=== PATIENT | male | born 1980 | race Caucasian/White ===

== ENCOUNTER 2017-09-25 16:22 | Emergency (ER) | payer SELFPAY ==
[~2017-09-25] VITALS: Ht 193 cm; Wt 93.0 kg
--- NOTE | 2017-09-25 17:15 | EKG ---
[address] [address] Test Date: 2017-09-25 Test Time: 17:12:06 Pat Name: MANAN BURCH Department: Room: Gender: M Vp Security: : 1980 Requested By: RENEE SMITH Order Number: [id number] Reading MD: Measurements Intervals [place] Rate: 84 P: 40 WA: 128 QRS: -8 QRSD: 88 T: 21 QT: 374 QTc: 445 Interpretive Statements SINUS RHYTHM LEFTWARD AXIS NO SPECIFIC ECG ABNORMALITIES RI6.01 No previous ECG available for comparison
[2017-09-25 17:29] LABS: BASO % 0 % (0-3); EOS # 0.2 x10^3/uL (0.0-0.7); EOS % 4 % (0-3); HEMATOCRIT 39.5 % (39.0-53.0); HEMOGLOBIN 13.7 g/dL (13.0-17.5); LYMPH % 25 % (24-48); MEAN CORPUSCULAR HEMOGLOBIN 33 pg (25-35); MEAN CORPUSCULAR HGB CONC 35 g/dL (31-37); MEAN CORPUSCULAR VOLUME 95 fL (79-100); MONO # 0.7 x10^3/uL (0.0-1.1); MONO % 17 % (0-9); NEUT # 2.2 x10^3uL (1.8-7.7); NEUT % 54 % (31-73); PLATELET COUNT 172 x10^3/uL (140-400); RED BLOOD COUNT 4.16 x10^6/uL (4.30-5.70); RED CELL DISTRIBUTION WIDTH 12.6 % (11.5-14.5); WHITE BLOOD COUNT 4.2 x10^3/uL (4.0-11.0)
[2017-09-25] MEDS ORDERED: IV NORMAL SALINE 1,000ML 1,000 ML IV ONE (17:45)
[2017-09-25 17:50] LABS: ALBUMIN 3.8 g/dL (3.4-5.0); ALBUMIN/GLOBULIN RATIO 0.9 (1.0-1.7); ALK PHOS 49 U/L (46-116); ALT (SGPT) 24 U/L (16-63); ANION GAP 11 (6-14); AST (SGOT) 18 U/L (15-37); BLOOD UREA NITROGEN 15 mg/dL (8-26); BUN/CREATININE RATIO 14 (6-20); CALCIUM 8.8 mg/dL (8.5-10.1); CARBON DIOXIDE 28 mmol/L (21-32); CHLORIDE 102 mmol/L (98-107); CREATININE 1.1 mg/dL (0.7-1.3); GFR 74.5; GLUCOSE 90 mg/dL (70-99); LIPASE 133 U/L (73-393); MAGNESIUM 2.1 mg/dL (1.8-2.4); POTASSIUM 3.6 mmol/L (3.5-5.1); SODIUM 141 mmol/L (136-145); TOTAL BILIRUBIN 0.3 mg/dL (0.2-1.0); TOTAL PROTEIN 8.1 g/dL (6.4-8.2)
[2017-09-25 18:00] VITALS: BP 140/80
[2017-09-25] MEDS ORDERED: IPRATRPIUM/ALBUTEROL 0.5/2.5MG 3 ML NEBU. NEB ONE (18:00)
[2017-09-25] MEDS ORDERED: KETOROLAC 30 MG/ML VIAL. IV ONE (18:00)
[2017-09-25] MEDS ORDERED: BENZONATATE 100 MG CAPSULE. PO ONE (18:00)
--- NOTE | 2017-09-25 18:01 | PHYS DOC ---
Past History Past Medical History: Other Additional Past Medical Histor: history of pericarditis Smoking: Non-smoker Adult General Chief Complaint Chief Complaint: COUGH HPI HPI 37-year-old male patient complaining of cough and congestion and sore throat for several days that started 2 weeks ago and improved spontaneously. Patient complaining of another course of dry cough , nasal congestion, myalgia, sore throat and earache that started 3 days ago and associated with shortness of breath and chest pain in bilateral chest during episodes of cough with radiation to his left shoulder. Patient states he had temperature up to 100 the last 3 days. Patient denies sick contact. Patient states he had the same symptom several years ago with diagnosis of pericarditis. Review of Systems Review of Systems Constitutional: Reports fever and chills Eyes: Denies change in visual acuity, redness, or eye pain [] HENT: Post nasal congestion and sore throat Respiratory: Reports cough and shortness of breath Cardiovascular: No additional information not addressed in HPI [] GI: Denies abdominal pain, nausea, vomiting, bloody stools or diarrhea [] : Denies dysuria or hematuria [] Musculoskeletal: Denies back pain or joint pain [] Integument: Denies rash or skin lesions [] Neurologic: Denies headache, focal weakness or sensory changes [] Endocrine: Denies polyuria or polydipsia [] All other systems were reviewed and found to be within normal limits, except as documented in this note. Current Medications Current Medications Current Medications Medications (Trade) Dose Ordered Sig/Chen Start Time Stop Time Status Last Admin Dose Admin Albuterol/ Ipratropium (Duoneb) 3 ml 1X ONCE 09/25/17 18:00 09/25/17 18:01 09/25/17 17:57 3 ML Benzonatate (Tessalon Perle) 100 mg 1X ONCE 09/25/17 18:00 09/25/17 18:01 Ketorolac Tromethamine (Toradol) 30 mg 1X ONCE 09/25/17 18:00 09/25/17 18:01 Sodium Chloride 1,000 ml @ 1,000 mls/hr 1X ONCE 09/25/17 17:45 09/25/17 18:44 Allergies Allergies Allergies Coded Allergies Type Severity Reaction Last Updated Verified No Known Drug Allergies 09/25/17 No Physical Exam Physical Exam Constitutional: Well developed, well nourished, mild distress, non-toxic appearance. [] HENT: Normocephalic, atraumatic, bilateral external ears normal, oropharynx moist, pharyngeal erythema, no oral exudates, nose normal. [] Eyes: PERRLA, EOMI, conjunctiva normal, no discharge. [] Neck: Normal range of motion, no tenderness, supple, no stridor. [] Cardiovascular:Heart rate regular rhythm, no murmur [] Lungs & Thorax: Bilateral breath sounds clear to auscultation [] Abdomen: Bowel sounds normal, soft, no tenderness, no masses, no pulsatile masses. [] Skin: Warm, dry, no erythema, no rash. [] Back: No tenderness, no CVA tenderness. [] Extremities: No tenderness, no cyanosis, no clubbing, ROM intact, no edema. [] Neurologic: Alert and oriented X 3, normal motor function, normal sensory function, no focal deficits noted. [] Psychologic: Affect normal, judgement normal, mood normal. [] Current Patient Data Lab Results Laboratory Tests Test 09/25/17 17:00 White Blood Count 4.2 x10^3/uL (4.0-11.0) Red Blood Count 4.16 x10^6/uL (4.30-5.70) L Hemoglobin 13.7 g/dL (13.0-17.5) Hematocrit 39.5 % (39.0-53.0) Mean Corpuscular Volume 95 fL (79-100) Mean Corpuscular Hemoglobin 33 pg (25-35) Mean Corpuscular Hemoglobin Concent 35 g/dL (31-37) Red Cell Distribution Width 12.6 % (11.5-14.5) Platelet Count 172 x10^3/uL (140-400) Neutrophils (%) (Auto) 54 % (31-73) Lymphocytes (%) (Auto) 25 % (24-48) Monocytes (%) (Auto) 17 % (0-9) H Eosinophils (%) (Auto) 4 % (0-3) H Basophils (%) (Auto) 0 % (0-3) Neutrophils # (Auto) 2.2 x10^3uL (1.8-7.7) Lymphocytes # (Auto) 1.0 x10^3/uL (1.0-4.8) Monocytes # (Auto) 0.7 x10^3/uL (0.0-1.1) Eosinophils # (Auto) 0.2 x10^3/uL (0.0-0.7) Basophils # (Auto) 0.0 x10^3/uL (0.0-0.2) Sodium Level 141 mmol/L (136-145) Potassium Level 3.6 mmol/L (3.5-5.1) Chloride Level 102 mmol/L (98-107) Carbon Dioxide Level 28 mmol/L (21-32) Anion Gap 11 (6-14) Blood Urea Nitrogen 15 mg/dL (8-26) Creatinine 1.1 mg/dL (0.7-1.3) Estimated GFR (Cockcroft-Gault) 74.5 BUN/Creatinine Ratio 14 (6-20) Glucose Level 90 mg/dL (70-99) Lactic Acid Level 1.2 mmol/L (0.4-2.0) Calcium Level 8.8 mg/dL (8.5-10.1) Magnesium Level 2.1 mg/dL (1.8-2.4) Total Bilirubin 0.3 mg/dL (0.2-1.0) Aspartate Amino Transferase (AST) 18 U/L (15-37) Alanine Aminotransferase (ALT) 24 U/L (16-63) Alkaline Phosphatase 49 U/L (46-116) Creatine Kinase 113 U/L (39-308) Creatine Kinase MB (Mass) < 0.5 ng/mL (0.0-3.6) Creatine Kinase MB Relative Index 0.4 % (0-4) Troponin I Quantitative < 0.017 ng/mL (0-0.055) RY-Ayy-[id number]-Type Natriuretic Peptide 88 pg/mL (0-124) Total Protein 8.1 g/dL (6.4-8.2) Albumin 3.8 g/dL (3.4-5.0) Albumin/Globulin Ratio 0.9 (1.0-1.7) L Lipase 133 U/L (73-393) EKG EKG EKG interpreted by me. EKG at 1712 showed sinus rhythm at rate of 84, leftward axis, no sign of pericarditis or acute ST and T-wave abnormality[] Radiology/Procedures Radiology/Procedures CXR: interpreted by Dr. Stacy: right lower lobe infiltrate, no cardiomegaly or pneumothorax.[] Course & Med Decision Making Course & Med Decision Making Pertinent Labs and Imaging pending. Patient care transferred to Dr. Garcia at 1800 --- Assumed care at 1800. The patient remains in stable condition. Oxygen stable, afebrile, no tachycardia or hypotension, labs unremarkable. CXR shows infiltrate consistent with community acquired pneumonia. Will give prescriptions for zpack, proair, tessalon perles. Follow up with primary care in 2-3 days. Come back for severe shortness of breath or chest pain, or otherwise worsening condition. Discharged home in stable condition. Kaleb Ruvalcaba Disclaimer Dragon Disclaimer This electronic medical record was generated, in whole or in part, using a voice recognition dictation system. Departure Departure: Impression: Primary Impression: URI (upper respiratory infection) Additional Impression: Community acquired pneumonia Disposition: HOME, SELF-CARE Condition: STABLE Referrals: PCP,NO (PCP) Patient Instructions: Pneumonia, Adult, [id number] Additional Instructions: Were seen in the emergency department today. You had pneumonia on your chest x- ray. Please take the prescribed antibiotic. Please rest, drink fluids, take Tylenol or ibuprofen for pain or fever, use inhaler and Tessalon Perles for cough. Follow-up with a primary care physician in 2-3 days. Return to the emergency department for severe shortness of breath or chest pain, or any otherwise worsening condition. Scripts Benzonatate (TESSALON PERLE) 100 Mg Capsule 1 CAP PO TID, #21 CAP Prov: KALEB BOSS MD 09/25/17 Albuterol Sulfate (PROAIR HFA INHALER) 8.5 Gm Hfa.aer.ad 1 PUFF INH PRN Q6HRS Y for SHORTNESS OF BREATH, #1 INHALER 0 Refills Prov: KALEB BOSS MD 09/25/17 Azithromycin (AZITHROMYCIN TABLET) 250 Mg Tablet 1 PKG PO UD, #6 TAB Prov: KALEB BOSS MD 09/25/17 Problem Qualifiers RENEE SMITH MD Sep 25, 2017 18:01 KALEB BOSS MD Sep 25, 2017 19:12
[2017-09-25 18:07] LABS: INFLUENZA A PATIENT NEGATIVE (NEGATIVE); INFLUENZA B PATIENT NEGATIVE (NEGATIVE)
[2017-09-25] MEDS ORDERED: ALBU8.5H8 INH (19:12)
[2017-09-25] MEDS ORDERED: AZIT250T6 PO (19:12)
[2017-09-25] MEDS ORDERED: BENZ100C PO (19:12)
--- NOTE | 2017-09-26 08:16 | RAD ---
2 view chest 09/25/2017 Clinical indication: Chest pain with cough. Comparison: None. Findings: Cardiac and mediastinal silhouettes are unremarkable. There are right lower lobe airspace opacities. No pleural effusion or pneumothorax. Impression: Findings consistent with right lower lobe pneumonia. Follow-up 2 view chest radiograph after a course of therapy is recommended to assess for resolution. This was known according to the preliminary report by Dr. Pope of the emergency service.
== END 2017-09-25 19:35 | disposition home or self-care (01) ==
LOC: ER 16:22
DX: J18.8 Other pneumonia, unspecified organism (principal); J06.9 Acute upper respiratory infection, unspecified
CPT/HCPCS: 36415; 71046; 80053; 82553; 83605; 83690; 83735; 83880; 84484; 85025; 85379; 87040; 87804; 93005; 94640; 96361; 96374; 99285; J1885; J7620; J7030

== ENCOUNTER 2017-09-30 16:21 | Inpatient (IN) | payer SELFPAY ==
[~2017-09-30] VITALS: Ht 193 cm; Wt 96.2 kg
[~2017-09-30 16:21] MED LIST: ALBU8.5H8 INH; AZIT250T6 PO; BENZ100C PO
--- NOTE | 2017-09-30 16:58 | EKG ---
[address] [address] Test Date: 2017-09-30 Test Time: 16:42:47 Pat Name: MANAN BURCH Department: Room: Gender: M Full Time Staff Interpreter: REMY : 1980 Requested By: RENEE SMITH Order Number: [id number] Reading MD: Measurements Intervals [place] Rate: 102 P: -51 DC: 92 QRS: 6 QRSD: 78 T: 100 QT: 308 QTc: 405 Interpretive Statements SINUS TACHYCARDIA T ABNORMALITY IN ANTEROLATERAL LEADS ABNORMAL ECG RI6.01 No previous ECG available for comparison
[2017-09-30] MEDS ORDERED: IPRATRPIUM/ALBUTEROL 0.5/2.5MG 3 ML NEBU. NEB ONE (17:00)
[2017-09-30] MEDS ORDERED: IV NORMAL SALINE 1,000ML 1,000 ML IV ONE (17:00)
--- NOTE | 2017-09-30 17:05 | PHYS DOC ---
Past History Past Medical History: Other Additional Past Medical Histor: history of pericarditis Past Surgical History: Appendectomy Smoking: Non-smoker Alcohol Use: None Drug Use: None Adult General Chief Complaint Chief Complaint: CHEST PAIN [facility] 37-year-old male patient was seen in this emergency room 5 days ago because of intractable cough and bilateral chest pain and diagnosed with right lower lobe pneumonia and treated with Zithromax and Tessalon but his cough and condition is not getting better. Patient complaining of generalized weakness and left- sided chest pain as a constant pain with shortness of breath and constant cough. Patient states he had fever 5 days ago that resolved after starting antibiotic and complaining of sore throat and generalized weakness without focal neuro deficit, vomiting or diarrhea, urinary symptom. Patient states he had pericarditis in 2008 and was concern for possible pericarditis again. Review of Systems Review of Systems Constitutional: Denies fever or chills [] Eyes: Denies change in visual acuity, redness, or eye pain [] HENT: Reports nasal congestion or sore throat] Respiratory: Reports cough and shortness of breath as Cardiovascular: No additional information not addressed in HPI [] GI: Denies abdominal pain, nausea, vomiting, bloody stools or diarrhea [] : Denies dysuria or hematuria [] Musculoskeletal: Denies back pain or joint pain [] Integument: Denies rash or skin lesions [] Neurologic: Denies headache, focal weakness or sensory changes [] Endocrine: Denies polyuria or polydipsia [] All other systems were reviewed and found to be within normal limits, except as documented in this note. Allergies Allergies Allergies Coded Allergies Type Severity Reaction Last Updated Verified No Known Drug Allergies 09/25/17 No Physical Exam Physical Exam Constitutional: Well developed, well nourished, moderate distress, non-toxic appearance, afebrile, coughs constantly. [] HENT: Normocephalic, atraumatic, bilateral external ears normal, oropharynx moist, pharyngeal erythema, no oral exudates, nose normal. [] Eyes: PERRLA, EOMI, conjunctiva normal, no discharge. [] Neck: Normal range of motion, no tenderness, supple, no stridor. [] Cardiovascular: Tachycardia, no murmur [] Lungs & Thorax: Mild respiratory distress, rhonchi Abdomen: Bowel sounds normal, soft, no tenderness, no masses, no pulsatile masses. [] Skin: Warm, dry, no erythema, no rash. [] Back: No tenderness, no CVA tenderness. [] Extremities: No tenderness, no cyanosis, no clubbing, ROM intact, no edema. [] Neurologic: Alert and oriented X 3, normal motor function, normal sensory function, no focal deficits noted. [] Psychologic: Affect normal, judgement normal, mood normal. [] EKG EKG EKG interpreted by me. EKG at 1642 showed sinus tachycardia at rate of 102, T abnormality in anterolateral leads, no sign of pericarditis[] Radiology/Procedures Radiology/Procedures [] [address] [address] IMAGING REPORT Signed PATIENT: MANAN BURCH ACCOUNT: [id number] : 1980 LOCATION: ER AGE: 37 SEX: M EXAM STATUS: REG ER ORD. PHYSICIAN: RENEE SMITH MD REASON: shortness of breath and chest pain and tachycardia PROCEDURE: CT ANGIOGRAPHY CHEST CTA scan of the Chest with Contrast (Pulmonary Embolism protocol) September 30, 2017 Clinical History: Shortness of breath and chest pain with cough for one week. Technique: After the intravenous administration of 75 cc of Omnipaque 300 contiguous, 0.625 mm axial sections were obtained through the chest. 2 mm axial and 3D MIP coronal and sagittal reconstructed images were obtained. One or more of the following individualized dose reduction techniques were utilized for this study: 1. Automated exposure control. 2. Adjustment of the mA and/or kV according to patient size. 3. Use of iterative reconstruction technique. Findings: No filling defect is seen within the major branches of either pulmonary artery. There is no CT evidence of pulmonary embolism. The heart and thoracic aorta are within normal limits. Minimal dependent subsegmental atelectasis is seen involving both lungs. A small focal areas of infiltrate/atelectasis is seen involving the left upper lobe. No pleural effusion or pneumothorax is seen. Impression: There is no CT evidence of pulmonary embolism. Electronically signed by: Jignesh Raygoza MD (09/30/2017 6:16 PM) [facility] DICTATED AND SIGNED BY: JIGNESH RAYGOZA MD DATE: 09/30/171810 CC: RENEE SMITH MD; PCP,HONORIO ~ Course & Med Decision Making Course & Med Decision Making Pertinent Labs and Imaging studies reviewed. (See chart for details) Evaluation of patient in ER showed 27-year-old male patient presented for the second time to emergency room because of cough and chest pain. Patient already treated for right lower lobe pneumonia without improvement of his condition and complaining of pain in left chest. 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 Patient had several attempts get CMP with hemolyzed blood with pending CMP. CBC did not show leukocytosis or anemia. CT of chest did not show PE and showed left upper lobe infiltrate. Dr. Bliss accepted admission at 1705. Antibiotic and IV fluid was started in ER. Dragon Disclaimer Dragon Disclaimer This electronic medical record was generated, in whole or in part, using a voice recognition dictation system. Departure Departure: Impression: Primary Impression: Pneumonia Additional Impressions: Cough Chest pain Disposition: 09 ADMITTED INPATIENT (At 1824) Admitting Physician: Mary Anne Bliss Condition: IMPROVED Referrals: PCP,HONORIO (PCP) Problem Qualifiers RENEE SMITH MD Sep 30, 2017 17:05
[2017-09-30] MEDS ORDERED: IOHEXOL 300 MG/ML 75 ML VIAL. IV ONE (17:15)
[2017-09-30] MEDS ORDERED: ONDANSETRON ODT 4 MG TAB.RAPDIS PO ONE (17:30)
[2017-09-30 17:41] LABS: BASO % 0 % (0-3); EOS % 0 % (0-3); HEMATOCRIT 41.3 % (39.0-53.0); HEMOGLOBIN 14.6 g/dL (13.0-17.5); LYMPH # 1.7 x10^3/uL (1.0-4.8); LYMPH % 18 % (24-48); MEAN CORPUSCULAR HEMOGLOBIN 33 pg (25-35); MEAN CORPUSCULAR HGB CONC 35 g/dL (31-37); MEAN CORPUSCULAR VOLUME 94 fL (79-100); MONO # 0.8 x10^3/uL (0.0-1.1); MONO % 8 % (0-9); NEUT # 7.1 x10^3uL (1.8-7.7); NEUT % 74 % (31-73); PLATELET COUNT 226 x10^3/uL (140-400); RED BLOOD COUNT 4.41 x10^6/uL (4.30-5.70); RED CELL DISTRIBUTION WIDTH 12.4 % (11.5-14.5); WHITE BLOOD COUNT 9.6 x10^3/uL (4.0-11.0)
--- NOTE | 2017-09-30 18:19 | RAD ---
CTA scan of the Chest with Contrast (Pulmonary Embolism protocol) September 30, 2017 Clinical History: Shortness of breath and chest pain with cough for one week. Technique: After the intravenous administration of 75 cc of Omnipaque 300 contiguous, 0.625 mm axial sections were obtained through the chest. 2 mm axial and 3D MIP coronal and sagittal reconstructed images were obtained. One or more of the following individualized dose reduction techniques were utilized for this study: 1. Automated exposure control. 2. Adjustment of the mA and/or kV according to patient size. 3. Use of iterative reconstruction technique. Findings: No filling defect is seen within the major branches of either pulmonary artery. There is no CT evidence of pulmonary embolism. The heart and thoracic aorta are within normal limits. Minimal dependent subsegmental atelectasis is seen involving both lungs. A small focal areas of infiltrate/atelectasis is seen involving the left upper lobe. No pleural effusion or pneumothorax is seen. Impression: There is no CT evidence of pulmonary embolism. Electronically signed by: Jignesh Raygoza MD (09/30/2017 6:16 PM) [facility]
[2017-09-30] MEDS ORDERED: VANCOMYCIN 1 GM in IV NORMAL SALINE 250ML 250 ML IV ONE (18:30)
[2017-09-30] MEDS ORDERED: PIPERACILLIN/TAZOBACTAM 3.375 GM in IV NORMAL SALINE 50ML 50 ML IV ONE (18:30)
[2017-09-30] MEDS ORDERED: ONDANSETRON PF 4 MG/2 ML VIAL. IV PRN (18:30)
[2017-09-30] MEDS ORDERED: VANCOMYCIN 1 GM VIAL. ONE (18:40)
[2017-09-30] MEDS ORDERED: IV NORMAL SALINE 500ML 500 ML ONE (18:40)
[2017-09-30] MEDS ORDERED: PIPERACILLIN/TAZOBACTAM 3.375 GM VIAL IV ONE (18:41)
[2017-09-30] MEDS ORDERED: IV NORMAL SALINE 50ML 50 ML ONE (18:41)
[2017-09-30] MEDS ORDERED: VANCOMYCIN 2 GM in IV NORMAL SALINE 500ML 500 ML IV ONE ×2 (19:00→21:30)
[2017-09-30 19:52] LABS: ALBUMIN 3.6 g/dL (3.4-5.0); ALBUMIN/GLOBULIN RATIO 0.8 (1.0-1.7); ALK PHOS 50 U/L (46-116); ALT (SGPT) 31 U/L (16-63); ANION GAP 11 (6-14); AST (SGOT) 17 U/L (15-37); BLOOD UREA NITROGEN 9 mg/dL (8-26); BUN/CREATININE RATIO 8 (6-20); CALCIUM 8.6 mg/dL (8.5-10.1); CARBON DIOXIDE 27 mmol/L (21-32); CHLORIDE 102 mmol/L (98-107); CREATININE 1.1 mg/dL (0.7-1.3); GFR 74.5; GLUCOSE 98 mg/dL (70-99); MAGNESIUM 1.9 mg/dL (1.8-2.4); POTASSIUM 3.2 mmol/L (3.5-5.1); SODIUM 140 mmol/L (136-145); TOTAL BILIRUBIN 0.6 mg/dL (0.2-1.0); TOTAL PROTEIN 8.2 g/dL (6.4-8.2)
[2017-09-30 20:31] VITALS: BP 112/79
[2017-09-30] MEDS: ACETAMINOPHEN 325 MG TABLET PO PRN (21:37)
[2017-09-30] MEDS: HYDROcodone/CHLORPHEN POLIS 5 ML SUS.ER.12H PO PRN (21:37)
[2017-09-30] MEDS: guaiFENesin DM 600/30MG 1 TAB TAB.ER.12H PO SCH (21:37)
[2017-09-30 22:15] VITALS: BP 115/70
[2017-10-01] MEDS: PIPERACILLIN/TAZOBACTAM 3.375 GM in IV NORMAL SALINE 50ML 50 ML IV SCH ×4 (00:19→19:55)
[2017-10-01] MEDS ORDERED: IPRATRPIUM/ALBUTEROL 0.5/2.5MG 3 ML NEBU. ONE (05:07)
[2017-10-01] MEDS: ACETAMINOPHEN 325 MG TABLET PO PRN (05:26)
[2017-10-01] MEDS: VANCOMYCIN 1.5 GM in IV NORMAL SALINE 500ML 500 ML IV SCH ×2 (05:26→14:46)
[2017-10-01] MEDS: IPRATRPIUM/ALBUTEROL 0.5/2.5MG 3 ML NEBU. NEB SCH ×4 (05:48→21:32)
[2017-10-01 06:23] VITALS: BP 124/72
[2017-10-01] MEDS: guaiFENesin DM 600/30MG 1 TAB TAB.ER.12H PO SCH ×2 (07:47→21:24)
[2017-10-01 07:49] LABS: BASO % 0 % (0-3); EOS # 0.1 x10^3/uL (0.0-0.7); EOS % 1 % (0-3); HEMATOCRIT 36.3 % (39.0-53.0); HEMOGLOBIN 12.7 g/dL (13.0-17.5); LYMPH # 1.2 x10^3/uL (1.0-4.8); LYMPH % 21 % (24-48); MEAN CORPUSCULAR HEMOGLOBIN 33 pg (25-35); MEAN CORPUSCULAR HGB CONC 35 g/dL (31-37); MEAN CORPUSCULAR VOLUME 94 fL (79-100); MONO # 0.6 x10^3/uL (0.0-1.1); MONO % 11 % (0-9); NEUT # 3.9 x10^3uL (1.8-7.7); NEUT % 67 % (31-73); PLATELET COUNT 203 x10^3/uL (140-400); RED BLOOD COUNT 3.85 x10^6/uL (4.30-5.70); RED CELL DISTRIBUTION WIDTH 12.3 % (11.5-14.5); WHITE BLOOD COUNT 5.8 x10^3/uL (4.0-11.0)
[2017-10-01 08:05] LABS: ALBUMIN 2.9 g/dL (3.4-5.0); ALBUMIN/GLOBULIN RATIO 0.7 (1.0-1.7); CALCIUM 8.3 mg/dL (8.5-10.1); CREATININE 1.2 mg/dL (0.7-1.3); GFR 67.4; MAGNESIUM 2.1 mg/dL (1.8-2.4); POTASSIUM 3.2 mmol/L (3.5-5.1); TOTAL BILIRUBIN 0.5 mg/dL (0.2-1.0)
[2017-10-01] MEDS ORDERED: FLU VACC QS2017-18 (36MOS+)/PF 0.5 ML SYRINGE. VAX IM ONE (09:00)
[2017-10-01] MEDS ORDERED: PNEUMOC CONJ VACC 23-VALENT 0.5 ML VIAL. VAX IM ONE (09:00)
[2017-10-01] MEDS ORDERED: POTASSIUM CHLORIDE 20 MEQ TABLET.ER. PO ONE (09:30)
[2017-10-01] MEDS: methylPREDNISolone SOD SUCC PF 125 MG/2 ML VIAL. IV SCH (10:28)
[2017-10-01 11:11] VITALS: BP 146/82
--- NOTE | 2017-10-01 12:08 | PDOC2 ---
SP LOBATO LEAD NET SOFTWARE DEVELOPER 10/01/17 1208: CONSULT Date of Admission DATE: 10/01/17 TIME: 12:07 Reason for Consult: chest pain Problem List Problems Medical Problems: (1) Chest pain Status: Acute (2) Cough Status: Acute (3) Pneumonia Status: Acute History of Present Illness Mr Jaquez refuses cardiology consult. Will inform PCP. Past Medical History pericarditis, pneumonia, lumbar disc herniation Past Surgical History: Appendectomy Family History diabetes mellitus, coronary disease Current Medications Current Medications Albuterol/ Ipratropium (Duoneb) 3 ml 1X ONCE NEB Last administered on 17:08; Start 09/30/17 at 17:00; Stop 09/30/17 at 17:02; Status DC Fentanyl Citrate (Fentanyl 2ml Vial) 50 mcg 1X ONCE IV Last administered on 17:58; Start 09/30/17 at 17:30; Stop 09/30/17 at 17:31; Status DC Ondansetron HCl (Zofran Odt) 4 mg 1X ONCE PO Last administered on 09/30/17 17: 57; Start 09/30/17 at 17:30; Stop 09/30/17 at 17:31; Status DC Sodium Chloride 1,000 ml @ 1,000 mls/hr 1X ONCE IV Last administered on 17:57; Start 09/30/17 at 17:00; Stop 09/30/17 at 17:59; Status DC Iohexol (Omnipaque 300 Mg/ml) 75 ml 1X ONCE IV Last administered on 09/30/17at 17:38; Start 09/30/17 at 17:15; Stop 09/30/17 at 17:16; Status DC Piperacillin Sod/ Tazobactam Sod 3.375 gm/Sodium Chloride 50 ml @ 100 mls/hr 1X ONCE IV Last administered on 09/30/17 18:49; Start 09/30/17 at 18:30; Stop 09/30/17 at 18:59; Status DC Vancomycin HCl 1 gm/Sodium Chloride 250 ml @ 250 mls/hr 1X ONCE IV ; Start 09/30/17 at 18:30; Stop 09/30/17 at 18:30; Status DC Ondansetron HCl (Zofran) 4 mg PRN Q4HRS PRN IV NAUSEA/VOMITING; Start 09/30/17 at 18:30; Stop 10/01/17 at 18:29 Fentanyl Citrate (Fentanyl 2ml Vial) 50 mcg PRN Q4HRS PRN IV PAIN; Start at 18:30 Vancomycin HCl 2 gm/Sodium Chloride 500 ml @ 250 mls/hr 1X ONCE IV Last administered on 09/30/17at 21:38; Start 09/30/17 at 19:00; Stop 09/30/17 at 20:59; Status DC Sodium Chloride 500 ml @ As Directed STK-MED ONCE .ROUTE ; Start 09/30/17 at 18: 40; Stop 09/30/17 at 18:41; Status DC Vancomycin HCl (Vancomycin) 1 gm STK-MED ONCE .ROUTE ; Start 09/30/17 at 18:40; Stop 09/30/17 at 18:41; Status DC Sodium Chloride 50 ml @ As Directed STK-MED ONCE .ROUTE ; Start 09/30/17 at 18:41 ; Stop 09/30/17 at 18:42; Status DC Piperacillin Sod/ Tazobactam Sod (Zosyn) 3.375 gm STK-MED ONCE IV ; Start at 18:41; Stop 09/30/17 at 18:42; Status DC Acetaminophen (Tylenol) 650 mg PRN Q6HRS PRN PO PAIN / TEMP Last administered on 10/01/17at 05:26; Start 09/30/17 at 19:30 Chlorphenir/ Hydrocodone Polistirex (Tussionex) 5 ml PRN Q12HR PRN PO COUGH Last administered on 09/30/17at 21:37; Start 09/30/17 at 20:15 Piperacillin Sod/ Tazobactam Sod 3.375 gm/Sodium Chloride 50 ml @ 100 mls/hr Q6HRS IV Last administered on 10/01/17at 07:34; Start 10/01/17 at 00:00 Guaifenesin (MUCINEX ER with DM) 1 tab BID PO Last administered on 10/01/17at 07: 47; Start 09/30/17 at 21:00 Albuterol/ Ipratropium (Duoneb) 3 ml RTQID NEB Last administered on 10/01/17at 09 :39; Start 10/01/17 at 08:00 Vancomycin HCl 2 gm/Sodium Chloride 500 ml @ 250 mls/hr 1X ONCE IV ; Start 09/30/17 at 21:30; Stop 09/30/17 at 21:55; Status DC Vancomycin HCl 1.5 gm/Sodium Chloride 500 ml @ 250 mls/hr Q8H IV Last administered on 10/01/17at 05:26; Start 10/01/17 at 05:30 Influenza Virus Vaccine Quadrival (Fluarix Quad [id number] Syringe) 0.5 ml ONCE ONCE VAX IM ; Start 10/01/17 at 09:00; Stop 10/01/17 at 09:01; Status DC Pneumococcal Polyvalent Vaccine (Pneumovax 23) 0.5 ml ONCE ONCE VAX IM ; Start 10/01/17 at 09:00; Stop 10/01/17 at 09:01; Status DC Albuterol/ Ipratropium (Duoneb) 3 ml STK-MED ONCE .ROUTE ; Start 10/01/17 at 05: 07; Stop 10/01/17 at 05:08; Status DC Vancomycin HCl (Vanco Per Pharmacy) 1 each PRN DAILY PRN MC SEE COMMENTS; Start 10/01/17 at 07:30 Potassium Chloride (Klor-Con) 40 meq 1X ONCE PO Last administered on 10/01/17at 10:27; Start 10/01/17 at 09:30; Stop 10/01/17 at 09:31; Status DC Methylprednisolone Sodium Succinate (SOLU-Medrol 125MG VIAL) 125 mg DAILY IV Last administered on 10/01/17at 10:28; Start 10/01/17 at 10:30 Active Scripts Active Tessalon Perle (Benzonatate) 100 Mg Capsule 1 Cap PO TID Proair Hfa Inhaler (Albuterol Sulfate) 8.5 Gm Hfa.aer.ad 1 Puff INH PRN Q6HRS PRN Azithromycin Tablet (Azithromycin) 250 Mg Tablet 1 Pkg PO UD Allergies: Coded Allergies: aspirin (Verified Allergy, Intermediate, 10/01/17) VITALS Vital Signs Date Time Temp Pulse Resp B/P (MAP) Pulse Ox O2 Delivery O2 Flow Rate FiO2 10/01/17 11:11 97.9 86 20 146/82 (103) 95 Room Air Labs Laboratory Tests Test 09/30/17 17:18 09/30/17 19:30 10/01/17 01:47 10/01/17 07:37 White Blood Count 9.6 x10^3/uL (4.0-11.0) 5.8 x10^3/uL (4.0-11.0) Red Blood Count 4.41 x10^6/uL (4.30-5.70) 3.85 x10^6/uL (4.30-5.70) Hemoglobin 14.6 g/dL (13.0-17.5) 12.7 g/dL (13.0-17.5) Hematocrit 41.3 % (39.0-53.0) 36.3 % (39.0-53.0) Mean Corpuscular Volume 94 fL (79-100) 94 fL (79-100) Mean Corpuscular Hemoglobin 33 pg (25-35) 33 pg (25-35) Mean Corpuscular Hemoglobin Concent 35 g/dL (31-37) 35 g/dL (31-37) Red Cell Distribution Width 12.4 % (11.5-14.5) 12.3 % (11.5-14.5) Platelet Count 226 x10^3/uL (140-400) 203 x10^3/uL (140-400) Neutrophils (%) (Auto) 74 % (31-73) 67 % (31-73) Lymphocytes (%) (Auto) 18 % (24-48) 21 % (24-48) Monocytes (%) (Auto) 8 % (0-9) 11 % (0-9) Eosinophils (%) (Auto) 0 % (0-3) 1 % (0-3) Basophils (%) (Auto) 0 % (0-3) 0 % (0-3) Neutrophils # (Auto) 7.1 x10^3uL (1.8-7.7) 3.9 x10^3uL (1.8-7.7) Lymphocytes # (Auto) 1.7 x10^3/uL (1.0-4.8) 1.2 x10^3/uL (1.0-4.8) Monocytes # (Auto) 0.8 x10^3/uL (0.0-1.1) 0.6 x10^3/uL (0.0-1.1) Eosinophils # (Auto) 0.0 x10^3/uL (0.0-0.7) 0.1 x10^3/uL (0.0-0.7) Basophils # (Auto) 0.0 x10^3/uL (0.0-0.2) 0.0 x10^3/uL (0.0-0.2) Prothrombin Time 11.4 SEC (9.4-11.4) Prothromb Time International Ratio 1.1 (0.9-1.1) Sodium Level 140 mmol/L (136-145) 141 mmol/L (136-145) Potassium Level 3.2 mmol/L (3.5-5.1) 3.2 mmol/L (3.5-5.1) Chloride Level 102 mmol/L (98-107) 105 mmol/L (98-107) Carbon Dioxide Level 27 mmol/L (21-32) 28 mmol/L (21-32) Anion Gap 11 (6-14) 8 (6-14) Blood Urea Nitrogen 9 mg/dL (8-26) 11 mg/dL (8-26) Creatinine 1.1 mg/dL (0.7-1.3) 1.2 mg/dL (0.7-1.3) Estimated GFR (Cockcroft-Gault) 74.5 67.4 BUN/Creatinine Ratio 8 (6-20) 9 (6-20) Glucose Level 98 mg/dL (70-99) 128 mg/dL (70-99) Lactic Acid Level 1.2 mmol/L (0.4-2.0) Calcium Level 8.6 mg/dL (8.5-10.1) 8.3 mg/dL (8.5-10.1) Magnesium Level 1.9 mg/dL (1.8-2.4) 2.1 mg/dL (1.8-2.4) Total Bilirubin 0.6 mg/dL (0.2-1.0) 0.5 mg/dL (0.2-1.0) Aspartate Amino Transf (AST/SGOT) 17 U/L (15-37) 12 U/L (15-37) Alanine Aminotransferase (ALT/SGPT) 31 U/L (16-63) 26 U/L (16-63) Alkaline Phosphatase 50 U/L (46-116) 41 U/L (46-116) Creatine Kinase 88 U/L (39-308) Creatine Kinase MB (Mass) < 0.5 ng/mL (0.0-3.6) Creatine Kinase MB Relative Index 0.6 % (0-4) Troponin I Quantitative < 0.017 ng/mL (0-0.055) < 0.017 ng/mL (0-0.055) < 0.017 ng/mL (0-0.055) Total Protein 8.2 g/dL (6.4-8.2) 7.0 g/dL (6.4-8.2) Albumin 3.6 g/dL (3.4-5.0) 2.9 g/dL (3.4-5.0) Albumin/Globulin Ratio 0.8 (1.0-1.7) 0.7 (1.0-1.7) Images CT - Impression: There is no CT evidence of pulmonary embolism. ROSEMARY HINSON MD 10/01/17 9288: CONSULT Reason for Consult: Chest pain Referring Physician: Dr. Bliss Chief Complaint Chest pain Source: Chart review, Patient History of Present Illness 37-year-old male who was recently diagnosed with right lower lobe pneumonia and started on Zithromax presented to the emergency room yesterday complaining of left-sided chest heaviness that he described as 'two bricks lying on chest' associated with mild shortness of breath. This particular pain has resolved now but he currently complains of retrosternal sharp chest pain worse with deep inspiration that appears to be pleuritic. He denied any orthopnea/PND, palpitations or syncope. He stated that he was worked up for chest heaviness in the past and was told he had pericarditis in 2008. 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 Past Medical History Pericarditis Pneumonia Social History Patient denied any smoking, alcohol or drug use Allergies: Coded Allergies: aspirin (Verified Allergy, Intermediate, 10/01/17) PSYCHOLOGICAL ROS: No: Hallucinations Eyes: No: Loss of vision HEENT: No: Epistaxis Respiratory: YES: Cough, No: Hemoptysis Cardiovascular: yes: Chest Pain Gastrointestinal: No: Vomiting, Diarrhea Neurological: No: Seizures Skin: No: Rash General: Alert, Oriented X3 HEENT: Atraumatic, PERRLA Lungs: Other (scattered crepitations bilaterally) Heart: Regular rate, No murmurs Abdomen: Soft, No tenderness Extremities: No edema Skin: No rashes Psych/Mental Status: Mood NL Assessment/Plan 1. Chest pain with typical features associated with ST depressions and T-wave inversions on EKG that are new compared to previous EKG, concerning for cardiac etiology. Myocardial infarction ruled out. Patient stated that he has had workup for similar chest pain several times in the past and has seen several cardiologists. We will proceed with cardiac catheterization for definitive evaluation. Risks and benefits were explained. 2. Pneumonia: Continue intravenous antibiotics Thank you for your consultation Problems: SP LOBATO APRN Oct 01, 2017 12:08 ROSEMARY HINSON MD Oct 01, 2017 17:08
[2017-10-01] MEDS: VANCOMYCIN PER PHARMACY MC PRN ×2 (12:37→21:56)
[2017-10-01] MEDS: HYDROcodone/CHLORPHEN POLIS 5 ML SUS.ER.12H PO PRN (14:55)
--- NOTE | 2017-10-01 15:35 | HP ---
ADMIT DATE: 09/30/2017 REASON FOR ADMISSION: Severe cough. HISTORY OF PRESENT ILLNESS: This is a 37-year-old who was seen earlier this week, 5 days ago because of intractable cough and bilateral chest pain, was diagnosed with right lower lobe pneumonia and treated with Zithromax and Tessalon Perles. He did not get better and presented back to the Emergency Room yesterday, still complaining of cough and constant chest pain, very concerned because of a history of pericarditis in 2008. PAST MEDICAL HISTORY: Pericarditis, recent cough. MEDICATIONS: None. ALLERGIES: ASPIRIN. HABITS: Denies tobacco, alcohol, drugs. Works at a [employer] REVIEW OF SYSTEMS: As per HPI. PHYSICAL EXAMINATION: VITAL SIGNS: Blood pressure 146/82, pulse 86, respirations 20, temperature 97.9, pulse ox 95% on room air. GENERAL: Noted coughing throughout the interview. HEENT: TMs were intact bilaterally. Nose swollen turbinates. Throat thick drainage in the posterior pharynx. NECK: Supple, without adenopathy. LUNGS: Severe coughing with deep breaths with coarse crackles. CARDIOVASCULAR: Regular rhythm and rate. ABDOMEN: Soft, nontender. EXTREMITIES: Without edema. LABORATORY DATA: Max white count was 9.6, hemoglobin 12.7, hematocrit 36.3. Potassium was 3.2. Admission albumin 3.6. Troponins x 3, negative. EKG is abnormal with some ST depression in the anterior lateral leads and chest CT positive for left upper lobe pneumonia. Negative for PE. ASSESSMENT: 1. Left upper lobe pneumonia. 2. Persistent cough. 3. Abnormal EKG with chest pain. PLAN: IV antibiotics. Cardiology consult initially declined; however, counter supply worker did visit with him and discussed his EKG with him and he will be transferred to [place] for a cath. Did receive 1 dose of Solu-Medrol as well. PAULINA TROTTER DO DR: LISA/roc JOB#: [id number] / [id number]
[2017-10-01 15:42] VITALS: BP 115/71
--- NOTE | 2017-10-01 16:42 | DS ---
DATE OF DISCHARGE: 10/01/2017 BRIEF DISCHARGE NOTE REASON FOR DISCHARGE: Transferred to [facility] for cardiac catheterization. Other problems, severe cough and left upper lobe pneumonia. Please see full H and P done earlier. Will be transferred in stable condition. PAULINA TROTTER DO DR: LISA/roc JOB#: [id number] / [id number]
--- NOTE | 2017-10-01 18:56 | CARD ---
MR#: [id number] Date of Study: 10/01/2017 Ordering Physician: SP LOBATO, Referring Physician: PAULINA TROTTER Tech: ROBERTH Salas APPROVED REPORT EXAM: Two-dimensional and M-mode echocardiogram with Doppler and color Doppler. Other Information Quality : GoodHR: 95bpm INDICATION Chest Pain 2D DIMENSIONS Left Atrium(2D)2.6 (1.6-4.0cm)IVSd1.0 (0.7-1.1cm) Aortic Root(2D)3.3 (2.0-3.7cm)LVDd4.4 (3.9-5.9cm) LVOT Diameter2.2 (1.8-2.4cm)PWd1.0 (0.7-1.1cm) LVDs2.8 (2.5-4.0cm)FS (%) 37.1 % SV58.2 mlLVEF(%)67.3 (>50%) Aortic Valve AoV Peak Hollis.149.1cm/sAoV VTI27.8cm AO Peak GR.8.9mmHgLVOT Peak Hollis.87.9cm/s LVOT VTI 20.55cmAO Mean GR.5mmHg HERLINDA (VMAX)2.66lj2QSJ (VTI)2.78cm2 Mitral Valve MV E Lbarjegi52.6cm/sMV DECEL [id number] MV A Kbrtoegl37.9cm/sE/A Ratio1.1 Pulmonary Valve PV Peak Ouredlgv664.9cm/sPV Peak Grad.6mmHg Tricuspid Valve RAP [id number] Pulmonary Vein S1 Csdedqmr67.5cm/sD2 Atbjyuka58.8cm/s LEFT VENTRICLE The left ventricle is normal size. There is normal left ventricular wall thickness. The left ventricu lar systolic function is normal and the ejection fraction is within normal range. EF 55% There is nor mal LV segmental wall motion. The left ventricular diastolic function and filling is normal for age. RIGHT VENTRICLE The right ventricle is normal size. The right ventricular systolic function is normal. ATRIA The left atrium size is normal. The right atrium size is normal. The interatrial septum is intact wit h no evidence for an atrial septal defect or patent foramen ovale as noted on 2-D or Doppler imaging. AORTIC VALVE The aortic valve is thickened but opens well. Doppler and Color Flow revealed no significant aortic r egurgitation. There is no significant aortic valvular stenosis. There is no aortic valvular vegetatio n. MITRAL VALVE The mitral valve is thickened but opens well. There is no evidence of mitral valve prolapse. There is no mitral valve stenosis. Doppler and Color Flow revealed no mitral valve regurgitation noted. TRICUSPID VALVE The tricuspid valve is normal in structure and function. Doppler and Color Flow revealed no tricuspid valve regurgitation noted. There is no tricuspid valve prolapse or vegetation. There is no tricuspid valve stenosis. PULMONIC VALVE The pulmonic valve is not well visualized. Doppler and Color Flow revealed no pulmonic valvular regur gitation. There is no pulmonic valvular stenosis. GREAT VESSELS The aortic root is normal in size. The IVC is dilated and collapses >50% with inspiration. PERICARDIAL EFFUSION There is no pleural effusion. There is no evidence of significant pericardial effusion. Critical Notification Critical Value: No <Conclusion> The left ventricular systolic function is normal and the ejection fraction is within normal range. E F 55% There is normal LV segmental wall motion. Signed by : Balbir Michelle, Electronically Approved : 10/01/2017 18:55:43
[2017-10-01 20:12] VITALS: BP 116/73
[2017-10-01] MEDS: LACTOBACILLUS RHAMNOSUS GG 1 CAPSULE. PO SCH (21:24)
[2017-10-01 21:34] LABS: VANC TR 23.7 mcg/mL (10.0-20.0)
[2017-10-01 23:20] VITALS: BP 112/67
[2017-10-02] MEDS: PIPERACILLIN/TAZOBACTAM 3.375 GM in IV NORMAL SALINE 50ML 50 ML IV SCH ×2 (01:22→06:02)
[2017-10-02] MEDS ORDERED: VANCOMYCIN 1.5 GM in IV NORMAL SALINE 500ML 500 ML IV SCH (03:00)
[2017-10-02] MEDS: IPRATRPIUM/ALBUTEROL 0.5/2.5MG 3 ML NEBU. NEB SCH (05:43)
[2017-10-02 06:15] VITALS: BP 121/70
[2017-10-02 07:26] LABS: BASO % 0 % (0-3); EOS % 0 % (0-3); HEMATOCRIT 37.4 % (39.0-53.0); HEMOGLOBIN 13.2 g/dL (13.0-17.5); LYMPH % 10 % (24-48); MEAN CORPUSCULAR HEMOGLOBIN 34 pg (25-35); MEAN CORPUSCULAR HGB CONC 35 g/dL (31-37); MEAN CORPUSCULAR VOLUME 95 fL (79-100); MONO # 0.6 x10^3/uL (0.0-1.1); MONO % 7 % (0-9); NEUT % 83 % (31-73); PLATELET COUNT 255 x10^3/uL (140-400); RED BLOOD COUNT 3.95 x10^6/uL (4.30-5.70); RED CELL DISTRIBUTION WIDTH 12.7 % (11.5-14.5); WHITE BLOOD COUNT 9.6 x10^3/uL (4.0-11.0)
[2017-10-02 07:45] LABS: ALBUMIN 3.4 g/dL (3.4-5.0); ALBUMIN/GLOBULIN RATIO 0.7 (1.0-1.7); CALCIUM 8.8 mg/dL (8.5-10.1); CREATININE 1.2 mg/dL (0.7-1.3); GFR 67.4; MAGNESIUM 1.8 mg/dL (1.8-2.4); TOTAL BILIRUBIN 0.4 mg/dL (0.2-1.0); TOTAL PROTEIN 8.1 g/dL (6.4-8.2)
[2017-10-02] MEDS: LACTOBACILLUS RHAMNOSUS GG 1 CAPSULE. PO SCH (08:13)
[2017-10-02] MEDS: methylPREDNISolone SOD SUCC PF 125 MG/2 ML VIAL. IV SCH (08:13)
[2017-10-02] MEDS: guaiFENesin DM 600/30MG 1 TAB TAB.ER.12H PO SCH (08:13)
== END 2017-10-02 08:47 | disposition short-term general hospital (02) | DRG 195 ==
LOC: ER 16:21 → 1 SOUTH 17:30
PROVIDERS: ADMIT Family Medicine; ATTEND Family Medicine
DX: J18.1 Lobar pneumonia, unspecified organism (principal); R07.9 Chest pain, unspecified; R94.31 Abnormal electrocardiogram [ECG] [EKG]; Z83.3 Family history of diabetes mellitus; Z90.49 Acquired absence of other specified parts of digestive tract; Z88.6 Allergy status to analgesic agent; Z23 Encounter for immunization
CPT/HCPCS: 36415; 71275; 80053; 80202; 82553; 83605; 83735; 84484; 85025; 85610; 87040; 93005; 93306; 94640; 96361; 96374; 96375; J2543; J2930; J3010; J3370; J7040; J7620; Q0162; Q9967; 99285-25; J7030